=== PATIENT | female | born 1980 | race Caucasian/White ===

== ENCOUNTER → 2016-12-19 | Outpatient (CLI) | payer OTHER ==
[2016-12-19 12:14] LABS: HEMATOCRIT 43.4 % (37.0-47.0); HEMOGLOBIN 14.5 g/dL (12.0-16.0); MEAN CORPUSCULAR HGB CONC 33.4 g/dL (33-37); MEAN PLATELET VOLUME 12.9 FL (7.4-12.2); RDW COEFFICIENT OF VARIATION 12.9 % (11.5-14.5); RED BLOOD COUNT 4.68 10^6/uL (4.20-5.40); WHITE BLOOD COUNT 7.96 10^3/uL (4.8-10.8)
[2016-12-19 12:18] LABS: ASPARTATE AMINO TRANSFERASE 31 IU/L (8-39); BILIRUBIN,TOTAL 0.7 mg/dL (0.3-1.2); BLOOD UREA NITROGEN 6 mg/dL (7-22); BUN/CREATININE RATIO 8.57 (6-20); CALCIUM 9.6 mg/dL (8.7-10.7); CHLORIDE 108 meq/L (98-112); CREATININE 0.7 mg/dL (0.50-1.20); EST GLOMERULAR FILTRATION > 60 (>60 ml/min/1.73m(2)); GLUCOSE 85 mg/dL (78-110); HDL CHOLESTEROL 38 mg/dL (40-150); POTASSIUM 4.8 meq/L (3.8-5.2); SODIUM 140 meq/L (135-145); TOTAL PROTEIN 7.5 g/dL (6.1-8.0); TRIGLYCERIDES 77 mg/dL (44-200)
[2016-12-19 12:34] LABS: FREE T4 (FREE THYROXINE) 1.08 ng/dL (0.93-1.71)
== END ==
LOC: MOB LAB 10:16
PROVIDERS: ATTEND Family Medicine
DX: E03.9 Hypothyroidism, unspecified (principal); F33.9 Major depressive disorder, recurrent, unspecified; F17.210 Nicotine dependence, cigarettes, uncomplicated
CPT/HCPCS: 36415; 80053; 80061; 84439; 84443; 85027